=== PATIENT | male | born 1955 | race Caucasian/White ===

== ENCOUNTER 2017-04-08 11:18 | Emergency (ER) | payer OTHER, SELFPAY ==
[2017-04-08] MEDS ORDERED: Fluorescein Opthalmic Strip ONE (11:39)
[2017-04-08] MEDS ORDERED: Gentamicin Ophth Soln 0.3% 5 ml Bottle ONE (12:03)
== END 2017-04-08 12:14 | disposition home or self-care (01) ==
LOC: BURERS 11:18
DX: B30.9 Viral conjunctivitis, unspecified (principal); K21.9 Gastro-esophageal reflux disease without esophagitis; I25.10 Atherosclerotic heart disease of native coronary artery without angina pectoris; E78.5 Hyperlipidemia, unspecified; J45.909 Unspecified asthma, uncomplicated; I10 Essential (primary) hypertension; F17.210 Nicotine dependence, cigarettes, uncomplicated; Z79.01 Long term (current) use of anticoagulants
CPT/HCPCS: 99282

== ENCOUNTER 2020-04-09 10:28 | Outpatient (CLI) | payer MEDICARE, OTHER | END 2020-04-09 10:29 | disposition home or self-care (01) | LOC: BURRAD 10:28 | PROVIDERS: ATTEND Family Medicine | DX: M25.512 Pain in left shoulder (principal); R07.9 Chest pain, unspecified; R91.8 Other nonspecific abnormal finding of lung field; I70.0 Atherosclerosis of aorta | CPT/HCPCS: 71046 ==

== ENCOUNTER 2020-10-09 16:19 | Emergency (ER) | payer MEDICARE, OTHER | END 2020-10-09 16:45 | disposition home or self-care (01) | LOC: BURERS 16:19 | DX: G89.29 Other chronic pain (principal); M54.2 Cervicalgia; K21.9 Gastro-esophageal reflux disease without esophagitis; E78.5 Hyperlipidemia, unspecified; F17.210 Nicotine dependence, cigarettes, uncomplicated | CPT/HCPCS: 99283 ==

== ENCOUNTER 2021-09-14 15:52 | Outpatient (CLI) | payer MEDICARE, OTHER | END 2021-09-14 15:53 | disposition home or self-care (01) | LOC: BURRAD 15:52 | PROVIDERS: ATTEND Family Medicine | DX: R07.81 Pleurodynia (principal); J92.9 Pleural plaque without asbestos; S22.41XA Multiple fractures of ribs, right side, initial encounter for closed fracture ==

== ENCOUNTER 2021-10-03 13:49 | Emergency (ER) | payer MEDICARE, OTHER ==
[2021-10-03 14:29] LABS: #Basophils 0.1 thou/uL (0.0-0.2); #Eosinphils 0.1 thou/uL (0.0-0.7); #Lymphocytes 2.4 thou/uL (1.20-3.40); #Monocytes 1.8 thou/uL (0.11-0.59); #Neutrophils 11.7 thou/uL (1.40-6.50); %Basophils 0.6 % (0.0-1.0); %Eosinophils 0.7 % (0.0-10.0); %Lymphocytes 14.8 % (21.0-51.0); %Monocytes 11.1 % (0.0-10.0); %Neutrophils 72.8 % (42.0-75.0); Hemoglobin 13.3 g/dL (14.0-18.0); Mean Corpuscular HGB CONC 33.1 g/dL (32.0-36.0); Mean Corpuscular Hemoglobin 30.9 pg (27.0-31.0); Mean Corpuscular Volume 93.3 fL (78.0-98.0); Mean Platelet Volume 8.4 fL (7.4-10.4); Platelet Count 263 thou/uL (130-400); RBC Distribution Width 12.3 % (11.5-14.5)
[2021-10-03] MEDS ORDERED: Metoprolol Tartrate 5 MG/5 ML VIAL ONE (14:41)
[2021-10-03 14:46] LABS: ALT (SGPT) 35 U/L (8-55); AST (SGOT) 22 U/L (5-34); Acetaminophen Less than 10.0 mcg/mL (10.0-30.0); Albumin 3.9 g/dL (3.4-4.8); Alcohol Less than 10 mg/dL (Less than 10); Alkaline Phosphatase 127 U/L (40-110); Anion Gap 19 mmol/L (10-20); BUN (Urea Nitrogen) 24 mg/dL (8.4-25.7); Calc. Creatinine Clearance 0 mL/min (70-130); Calcium 10.3 mg/dL (7.8-10.44); Carbon Dioxide 22 mmol/L (23-31); Chloride 97 mmol/L (98-107); Estimated GFR 50; Globulin 3.7 g/dL (2.4-3.5); Glucose 93 mg/dL (80-115); Potassium 4.2 mmol/L (3.5-5.1); Protein, Total 7.6 g/dL (5.8-8.1); Salicylate Less than 8.0 mg/dL (15.0-30.0); Sodium 134 mmol/L (136-145)
[2021-10-03] MEDS ORDERED: niCARdipine 25 MG/10 ML VIAL ONE (15:25)
== END 2021-10-03 16:00 | disposition short-term general hospital (02) ==
LOC: BURERS 13:49
DX: I60.9 Nontraumatic subarachnoid hemorrhage, unspecified (principal); I10 Essential (primary) hypertension; K21.9 Gastro-esophageal reflux disease without esophagitis; I25.10 Atherosclerotic heart disease of native coronary artery without angina pectoris; E78.5 Hyperlipidemia, unspecified; F17.200 Nicotine dependence, unspecified, uncomplicated; Z79.899 Other long term (current) drug therapy; Z79.01 Long term (current) use of anticoagulants
CPT/HCPCS: 36415; 70450; 80053; 80307; 84443; 85025; 93005; 94760; 96374; 96375